=== PATIENT | male | born 1960 | race Caucasian/White ===

== ENCOUNTER 2020-04-04 07:57 | Emergency (ER) | payer BC ==
[2020-04-04] MEDS ORDERED: Sodium Chloride 0.9% 10 ML Syringe FLUSH PRN (08:10)
[2020-04-04] MEDS ORDERED: Alum Hydrox/Mag Hydrox/Simeth 30 ML, Lidocaine 2% 15 ML PO ONE ×2 (08:11)
[2020-04-04] MEDS ORDERED: Famotidine 20 MG/2 ML SDV IVPUSH ONE (08:11)
--- NOTE | 2020-04-04 08:14 | EDM.PDOC ---
ED HPI GENERAL MEDICAL PROBLEM - General Chief Complaint: Chest Pain Stated Complaint: CHEST PAIN Time Seen by Provider: 04/04/20 08:02 Source of Information: Reports: Patient, Family History Limitations: Reports: No Limitations - History of Present Illness INITIAL COMMENTS - FREE TEXT/NARRATIVE: The patient presents with chest pain. This started this morning when he was drinking coffee. The pain is burning and in the middle of his chest. He has no shortness of breath with it. He had some nausea but that is gone. He did take an aspirin but that made it worse. He has no fever, chills, cough, abdominal pain, nausea or vomiting. He has no pain or swelling in his legs. He has no history of [place] or heart disease. He does have a history of hypertension and hypercholesterolemia. He has no history of diabetes. He does have a family history of heart disease. He does not smoke. Onset: Sudden Duration: Hour(s): Location: Reports: Chest Quality: Reports: Burning Severity: Moderate Improves with: Reports: None Worsens with: Reports: None Associated Symptoms: Reports: Chest Pain. Denies: Cough, Fever/Chills, Headaches, Nausea/Vomiting, Shortness of Breath - Related Data Allergies Allergy/AdvReac Type Severity Reaction Status Date / Time iv contrast dye Allergy Severe Swelling Uncoded 04/04/20 08:16 Home Meds: Home Meds . [Unable to Verify Home Med List] 04/04/20 [History] ED ROS GENERAL - Review of Systems Review Of Systems: See Below Constitutional: Reports: No Symptoms HEENT: Reports: No Symptoms Respiratory: Reports: No Symptoms Cardiovascular: Reports: Chest Pain Endocrine: Reports: No Symptoms GI/Abdominal: Reports: Nausea. Denies: Abdominal Pain, Vomiting : Reports: No Symptoms Musculoskeletal: Reports: No Symptoms ED EXAM, GENERAL - Physical Exam Exam: See Below Exam Limited By: No Limitations General Appearance: Alert, No Apparent Distress Ears: Normal External Exam Nose: Normal Inspection Head: Atraumatic, Normocephalic Neck: Normal Inspection Respiratory/Chest: No Respiratory Distress, Lungs Clear, Normal Breath Sounds Cardiovascular: Regular Rate, Rhythm, No Edema, No Murmur GI/Abdominal: Soft, Non-Tender, No Organomegaly, No Mass Extremities: Normal Inspection EKG INTERPRETATION EKG Date: 04/04/20 Time: 08:01 Rhythm: NSR Rate (Beats/Min): 70 [place]: Normal P-Wave: Present QRS: Normal ST-T: Normal QT: Normal Course - Vital Signs Last Recorded V/S: Last Vital Signs Temp 97.2 F 04/04/20 08:03 Pulse 68 04/04/20 08:03 Resp 16 04/04/20 08:03 BP 183/107 H 04/04/20 08:03 Pulse Ox 97 04/04/20 08:03 - Orders/Labs/Meds Orders: Active Orders 24 hr Category Date Time Status Cardiac Monitoring [RC] . DIRECTED Care 04/04/20 08:10 Active EKG Documentation Completion [RC] ASDIRECTED Care 04/04/20 12:26 Active EKG Documentation Completion [RC] STAT Care 04/04/20 08:11 Active Peripheral IV Care [RC] . DIRECTED Care 04/04/20 08:11 Active PSA TOTAL%EE [REF] Routine Lab 04/04/20 08:10 Received PTT,PARTIAL THROMBOPLSTIN TIME [COAG] Stat Lab 04/04/20 13:18 Received Heparin Sodium/D5W [Heparin 25,000 Units in D5W 500 ML] Med 04/04/20 12:30 Active 25,000 units in 500 ml IV TITRATE Nitroglycerin/D5W [Nitroglycerin 25 MG/D5W 250 ML] Med 04/04/20 12:30 Active 25 mg in 250 ml IV TITRATE Sodium Chloride 0.9% [Saline Flush] Med 04/04/20 08:10 Active 10 ml FLUSH ASDIRECTED PRN Peripheral IV Insertion Adult [OM.PC] Stat Oth 04/04/20 08:10 Ordered EKG 12 Lead [EK] Stat Ther 04/04/20 12:26 Ordered Medication Orders Heparin Sodium/Dextrose (Heparin 25,000 Units In D5w 500 Ml) 25,000 units in 500 mls @ 20.003 mls/hr IV TITRATE GOMEZ; Protocol Last Admin: 04/04/20 12:48 Dose: 9 units/kg/hr, 20.003 mls/hr Documented by: TOMMY Cosigned by: AMOS Nitroglycerin/Dextrose (Nitroglycerin 25 Mg/D5w 250 Ml) 25 mg in 250 mls @ 3 mls/hr IV TITRATE GOMEZ; Protocol Last Admin: 04/04/20 13:04 Dose: 3 mls/hr Documented by: TOMMY Sodium Chloride (Saline Flush) 10 ml FLUSH ASDIRECTED PRN PRN Reason: Keep Vein Open Last Admin: 04/04/20 08:20 Dose: 10 ml Documented by: TOMMY Labs: Laboratory Tests 04/04/20 04/04/20 04/04/20 Range/Units 08:10 08:10 08:10 WBC 6.41 (4.23-9.07) K/mm3 RBC 5.56 (4.63-6.08) M/mm3 Hgb 16.4 (13.7-17.5) gm/dl Hct 48.7 (40.1-51.0) % MCV 87.6 (79.0-92.2) fl MCH 29.5 (25.7-32.2) pg MCHC 33.7 (32.2-35.5) g/dl RDW Std Deviation 46.7 H (35.1-43.9) fL Plt Count 238 (163-337) K/mm3 MPV 9.5 (9.4-12.3) fl Neut % (Auto) 64.5 (34.0-67.9) % Lymph % (Auto) 15.8 L (21.8-53.1) % [place] % (Auto) 16.1 H (5.3-12.2) % Eos % (Auto) 3.3 (0.8-7.0) Baso % (Auto) 0.3 (0.1-1.2) % Neut # (Auto) 4.14 (1.78-5.38) K/mm3 Lymph # (Auto) 1.01 L (1.32-3.57) K/mm3 [place] # (Auto) 1.03 H (0.30-0.82) K/mm3 Eos # (Auto) 0.21 (0.04-0.54) K/mm3 Baso # (Auto) 0.02 (0.01-0.08) K/mm3 Manual Slide Review Abnormal smear Sodium 137 (136-145) mEq/L Potassium 3.8 (3.5-5.1) mEq/L Chloride 99 (98-107) mEq/L Carbon Dioxide 25 (21-32) mEq/L Anion Gap 16.8 H (5-15) BUN 15 (7-18) mg/dL Creatinine 1.2 (0.7-1.3) mg/dL Est Cr Clr Drug Dosing 69.28 mL/min Estimated GFR (MDRD) > 60 (>60) mL/min BUN/Creatinine Ratio 12.5 L (14-18) Glucose 125 H (74-106) mg/dL Calcium 9.3 (8.5-10.1) mg/dL Total Bilirubin 0.6 (0.2-1.0) mg/dL AST 19 (15-37) U/L ALT 37 (16-63) U/L Alkaline Phosphatase 73 (46-116) U/L Troponin I < 0.017 (0.00-0.056) ng/mL Total Protein 7.8 (6.4-8.2) g/dl Albumin 3.9 (3.4-5.0) g/dl Globulin 3.9 gm/dL Albumin/Globulin Ratio 1.0 (1-2) PSA Screen 5.2 H (0.0-4.0) ng/mL 04/04/20 Range/Units 11:54 WBC (4.23-9.07) K/mm3 RBC (4.63-6.08) M/mm3 Hgb (13.7-17.5) gm/dl Hct (40.1-51.0) % MCV (79.0-92.2) fl MCH (25.7-32.2) pg MCHC (32.2-35.5) g/dl RDW Std Deviation (35.1-43.9) fL Plt Count (163-337) K/mm3 MPV (9.4-12.3) fl Neut % (Auto) (34.0-67.9) % Lymph % (Auto) (21.8-53.1) % [place] % (Auto) (5.3-12.2) % Eos % (Auto) (0.8-7.0) Baso % (Auto) (0.1-1.2) % Neut # (Auto) (1.78-5.38) K/mm3 Lymph # (Auto) (1.32-3.57) K/mm3 [place] # (Auto) (0.30-0.82) K/mm3 Eos # (Auto) (0.04-0.54) K/mm3 Baso # (Auto) (0.01-0.08) K/mm3 Manual Slide Review Sodium (136-145) mEq/L Potassium (3.5-5.1) mEq/L Chloride (98-107) mEq/L Carbon Dioxide (21-32) mEq/L Anion Gap (5-15) BUN (7-18) mg/dL Creatinine (0.7-1.3) mg/dL Est Cr Clr Drug Dosing mL/min Estimated GFR (MDRD) (>60) mL/min BUN/Creatinine Ratio (14-18) Glucose (74-106) mg/dL Calcium (8.5-10.1) mg/dL Total Bilirubin (0.2-1.0) mg/dL AST (15-37) U/L ALT (16-63) U/L Alkaline Phosphatase (46-116) U/L Troponin I 3.725 H* (0.00-0.056) ng/mL Total Protein (6.4-8.2) g/dl Albumin (3.4-5.0) g/dl Globulin gm/dL Albumin/Globulin Ratio (1-2) PSA Screen (0.0-4.0) ng/mL Meds: Medications Generic Name Dose Route Start Last Admin Trade Name Freq PRN Reason Stop Dose Admin Heparin Sodium/Dextrose 25,000 units in 500 mls @ 20.003 mls/hr 04/04/20 12:30 04/04/20 12:48 Heparin 25,000 Units In D5w 500 Ml IV 9 units/kg/hr TITRATE GOMEZ 20.003 mls/hr Administration Protocol 9 UNITS/KG/HR Nitroglycerin/Dextrose 25 mg in 250 mls @ 3 mls/hr 04/04/20 12:30 04/04/20 13:04 Nitroglycerin 25 Mg/D5w 250 Ml IV 3 mls/hr TITRATE GOMEZ Administration Protocol Sodium Chloride 10 ml 04/04/20 08:10 04/04/20 08:20 Saline Flush FLUSH 10 ml ASDIRECTED PRN Administration Keep Vein Open Discontinued Medications Generic Name Dose Route Start Last Admin Trade Name Freq PRN Reason Stop Dose Admin Al Hydroxide/Mg Hydroxide 30 0 ml 04/04/20 08:11 04/04/20 08:20 ml/ Lidocaine HCl 15 ml PO 04/04/20 08:12 45 ml ONETIME ONE Administration Famotidine 20 mg 04/04/20 08:11 04/04/20 08:20 Pepcid IVPUSH 04/04/20 08:12 20 mg ONETIME ONE Administration Heparin Sodium (Porcine) 5,000 units 04/04/20 12:27 04/04/20 12:48 Heparin Sodium IVPUSH 04/04/20 12:28 5,000 units .BOLUS ONE Administration Hydromorphone HCl 0.5 mg 04/04/20 09:09 04/04/20 09:34 Dilaudid IVPUSH 04/04/20 09:10 0.5 mg ONETIME ONE Administration Hydromorphone HCl 1 mg 04/04/20 12:05 04/04/20 12:48 Dilaudid IVPUSH 04/04/20 12:06 1 mg ONETIME ONE Administration Iopamidol 100 ml 04/04/20 12:28 04/04/20 12:51 Isovue-300 (61%) IVPUSH 04/04/20 12:29 Not Given ONETIME ONE - Re-Assessments/Exams Free Text/Narrative Re-Assessment/Exam: 04/04/20 09:05 I ordered an IV saline lock, pepcid 20mg IV, GI cocktail, CXR, EKG and labs. He did take aspirin before arrival. His EKG shows a NSR with no acute changes. His CXR looks good. His CBC and CMP look good. His troponin is negative. He feels better. I will do a 3 hour rule out on him. I feel this is GI related. 04/04/20 12:33 His repeat troponin was elevated at 3.725. I have ordered a heparin bolus and drip and a nitro drip. I have ordered a CT of his chest due to the fall a couple days ago. He will need to go to [place] and see cardiology. I called [facility] in [place] and talked with Dr Elizabeth the hospitalist law firm receptionist and she accepted the patient. He will be going by ambulance. Departure - Departure Time of Disposition: 13:25 Disposition: DC/Tfer to [facility] Reason for Transfer *Q: Other Condition: Serious Clinical Impression: Non-STEMI (non-ST elevated myocardial infarction) Referrals: Félix Jordan MD [Primary Care Provider] - Forms: ED Department Discharge Sepsis Event Note (ED) - Evaluation Sepsis Screening Result: No Definite Risk - Focused Exam Vital Signs: Vital Signs Temp Pulse Resp BP Pulse Ox 04/04/20 08:03 97.2 F 68 16 183/107 H 97 - My Orders Last 24 Hours: My Active Orders 04/04/20 08:10 Cardiac Monitoring [RC] . DIRECTED PSA TOTAL%EE [REF] Routine Sodium Chloride 0.9% [Saline Flush] 10 ml FLUSH ASDIRECTED PRN Peripheral IV Insertion Adult [OM.PC] Stat 04/04/20 08:11 EKG Documentation Completion [RC] STAT Peripheral IV Care [RC] . DIRECTED 04/04/20 12:26 EKG Documentation Completion [RC] ASDIRECTED EKG 12 Lead [EK] Stat 04/04/20 12:30 Heparin Sodium/D5W [Heparin 25,000 Units in D5W 500 ML] 25,000 units in 500 ml IV TITRATE Nitroglycerin/D5W [Nitroglycerin 25 MG/D5W 250 ML] 25 mg in 250 ml IV TITRATE 04/04/20 13:18 PTT,PARTIAL THROMBOPLSTIN TIME [COAG] Stat - Assessment/Plan Last 24 Hours: My Active Orders 04/04/20 08:10 Cardiac Monitoring [RC] . DIRECTED PSA TOTAL%EE [REF] Routine Sodium Chloride 0.9% [Saline Flush] 10 ml FLUSH ASDIRECTED PRN Peripheral IV Insertion Adult [OM.PC] Stat 04/04/20 08:11 EKG Documentation Completion [RC] STAT Peripheral IV Care [RC] . DIRECTED 04/04/20 12:26 EKG Documentation Completion [RC] ASDIRECTED EKG 12 Lead [EK] Stat 04/04/20 12:30 Heparin Sodium/D5W [Heparin 25,000 Units in D5W 500 ML] 25,000 units in 500 ml IV TITRATE Nitroglycerin/D5W [Nitroglycerin 25 MG/D5W 250 ML] 25 mg in 250 ml IV TITRATE 04/04/20 13:18 PTT,PARTIAL THROMBOPLSTIN TIME [COAG] Stat
[2020-04-04] MEDS ORDERED: HYDROmorphone 0.5 MG/0.5 ML Syringe IVPUSH ONE (09:09)
--- NOTE | 2020-04-04 11:20 | CR ---
Chest: Portable view of the chest was obtained. Comparison: No prior chest imaging is available. Heart size and mediastinum are normal. Lungs are clear with no acute parenchymal change. Bony structures shows a partially visualized right shoulder prosthesis. Impression: 1. Nothing acute is appreciated on portable chest x-ray. Diagnostic code #2 This report was dictated in MDT
[2020-04-04] MEDS ORDERED: HYDROmorphone 1 MG/ML Syringe IVPUSH ONE (12:05)
[2020-04-04] MEDS ORDERED: Heparin Sodium 5,000 Units/ML Vial IVPUSH ONE (12:27)
[2020-04-04] MEDS ORDERED: Iopamidol 612 MG/ML 100 ML Bottle IVPUSH ONE (12:28)
[2020-04-04] MEDS ORDERED: Nitroglycerin/D5W 25 MG/250 ML BOTTLE IV SCH (12:30)
[2020-04-04] MEDS ORDERED: Heparin Sodium/D5W 25,000 UNITS/500 ML BAG IV SCH (12:30)
--- NOTE | 2020-04-04 13:02 | CT ---
CT chest Technique: Multiple axial sections were obtained from above the lung apices inferiorly through the lung bases. Intravenous contrast was not utilized. Findings: Artifact is noted from right shoulder prosthesis. Mediastinum and hilar region show no adenopathy or other abnormal soft tissue. No axillary adenopathy is seen. Aorta shows no aneurysm. Coronary artery calcification is seen. No pericardial thickening is seen. Visualized upper abdominal structures shows no discrete abnormality. Mild areas of scattered pleural thickening are seen believed to be nonacute. No acute parenchymal process seen within either lung. No pleural effusions or pneumothorax are seen. Bone window settings were reviewed. No discrete rib fracture is appreciated. Mild scattered degenerative change within the spine is seen. Nothing acute is seen within the thoracic spine. No sternal fracture is appreciated. Impression: 1. Findings which are nonacute as noted above. Diagnostic code #2 This report was dictated in MDT
== END 2020-04-04 14:05 ==
LOC: JD.ED 07:57
DX: I21.4 Non-ST elevation (NSTEMI) myocardial infarction (principal); Z79.82 Long term (current) use of aspirin; Z91.041 Radiographic dye allergy status; R97.20 Elevated prostate specific antigen [PSA]; Z12.5 Encounter for screening for malignant neoplasm of prostate
CPT/HCPCS: 36415; 71045; 71250; 80053; 84153; 84154; 84484; 85025; 85730; 93005; 96365; 96368; 96375; 96376; 99285; A9270; G0103; J1170; J1644; J3490; 93010

== ENCOUNTER 2024-01-25 14:47 | Emergency (ER) | payer BC ==
[2024-01-25] MEDS: Diphtheria,Pertussis(Acell),Tetanus Vaccine 0.5 ML Syringe IM ONE (15:40)
[2024-01-25] MEDS: Lidocaine 1% 10 ML MDV INJECT ONE (16:00)
== END 2024-01-25 16:55 | disposition home or self-care (01) ==
LOC: JD.ED 14:47
DX: S61.211A Laceration without foreign body of left index finger without damage to nail, initial encounter (principal); M20.012 Mallet finger of left finger(s); I10 Essential (primary) hypertension; E11.9 Type 2 diabetes mellitus without complications; Z79.899 Other long term (current) drug therapy; Z91.041 Radiographic dye allergy status; Z23 Encounter for immunization; W22.8XXA Striking against or struck by other objects, initial encounter; Y93.89 Activity, other specified
CPT/HCPCS: 12001; 90471; 90715; 99282; 99282-25; J3490